=== PATIENT | female | born 1955 | race Caucasian/White ===

== ENCOUNTER → 2017-01-15 | Outpatient (CLI) | payer OTHER | END | disposition home or self-care (01) | LOC: CFH 13:13 | PROVIDERS: ATTEND Obstetrics & Gynecology Maternal & Fetal Medicine | DX: Z12.31 Encounter for screening mammogram for malignant neoplasm of breast (principal) | CPT/HCPCS: G0202 ==

== ENCOUNTER → 2017-01-21 | Outpatient (CLI) | payer OTHER ==
[~2017-01-21] MED LIST: ATOR10TA9 PO; DOCU-144 PO; LEVO112T4 PO
[2017-01-21 11:56] LABS: ASPARTATE AMINO TRANSFERASE 16 U/L (15-37); BLOOD UREA NITROGEN 6 mg/dL (7-18)
== END | disposition home or self-care (01) ==
LOC: STAR 10:52
PROVIDERS: ATTEND Obstetrics & Gynecology Maternal & Fetal Medicine
DX: Z01.818 Encounter for other preprocedural examination (principal); N81.6 Rectocele
CPT/HCPCS: 36415; 80053; 81003; 85025; 93005

== ENCOUNTER → 2017-04-14 | Outpatient (CLI) | payer OTHER ==
[2017-04-14 10:16] LABS: BLOOD UREA NITROGEN 11 mg/dL (7-18)
[2017-04-14 10:29] LABS: ASPARTATE AMINO TRANSFERASE 20 U/L (15-37)
== END | disposition home or self-care (01) ==
LOC: STAR 09:05
PROVIDERS: ATTEND Urology
DX: Z01.818 Encounter for other preprocedural examination (principal); R94.31 Abnormal electrocardiogram [ECG] [EKG]; C64.9 Malignant neoplasm of unspecified kidney, except renal pelvis; D18.03 Hemangioma of intra-abdominal structures; K80.20 Calculus of gallbladder without cholecystitis without obstruction; R79.1 Abnormal coagulation profile
CPT/HCPCS: 36415; 80053; 81003; 85025; 85610; 87086; 93005

== ENCOUNTER 2017-04-23 05:37 | Inpatient (IN) | payer OTHER ==
[2017-04-14 09:36] VITALS: BP 143/81
[~2017-04-23] VITALS: Ht 170.2 cm; Wt 83.7 kg
[2017-04-23] MEDS ORDERED: LACTATED RINGERS 1,000 ML IV SCH (06:42)
[2017-04-23] MEDS ORDERED: LIDOCAINE 1%, 2ML ONE (06:46)
[2017-04-23] MEDS ORDERED: FENTANYL PF 250 MCG/5ML ONE (06:55)
[2017-04-23] MEDS ORDERED: MIDAZOLAM 1 MG/ML, 2ML ONE (06:55)
[2017-04-23] MEDS ORDERED: LIDOCAINE 1%, 2ML SQ PRN (07:00)
[2017-04-23] MEDS ORDERED: FUROSEMIDE 20 MG/2 ML ONE (07:09)
[2017-04-23] MEDS ORDERED: BUPIVACAINE/PF 0.25% ONE (07:10)
[2017-04-23] MEDS ORDERED: THROMBIN 5,000 UNIT VIAL TP ONE (07:10)
[2017-04-23] MEDS ORDERED: EPINEPHRINE 1 MG/ML, 1ML ONE (07:10)
[2017-04-23] MEDS ORDERED: MANNITOL PMX 20% 500 ML ONE (07:10)
[2017-04-23] MEDS ORDERED: GLYCOPYRROLATE 0.2MG/1ML ONE (07:28)
[2017-04-23] MEDS ORDERED: CEFAZOLIN 1,000 MG ONE (07:28)
[2017-04-23] MEDS ORDERED: ONDANSETRON 2MG/ML, 2ML ONE (07:28)
[2017-04-23] MEDS ORDERED: PROPOFOL 10 MG/ML, 20ML ONE (07:28)
[2017-04-23] MEDS ORDERED: SUCCINYLCHOLINE 20 MG/ML, 10ML ONE (07:28)
[2017-04-23] MEDS ORDERED: NEOSTIGMINE 1 MG/ML, 10ML ONE (07:28)
[2017-04-23] MEDS ORDERED: DEXAMETHASONE 4 MG/ML, 1ML ONE (07:28)
[2017-04-23] MEDS ORDERED: ROCURONIUM 10 MG/ML ONE (07:28)
[2017-04-23] MEDS ORDERED: HYDROmorphone 2 MG/ML, 1ML ONE (08:44)
[2017-04-23] MEDS ORDERED: BUPIVACAINE/PF-EPI 0.25% 1:200K INFIL ONE (09:09)
[2017-04-23] MEDS ORDERED: HYDROmorphone 1 MG/ML, 1ML ONE (12:19)
[2017-04-23] MEDS ORDERED: FENTANYL PF 100 MCG/2ML ONE (12:19)
[2017-04-23] MEDS: HYDROmorphone 1 MG/ML, 1ML IV PRN ×4 (12:25→12:46)
[2017-04-23] MEDS ORDERED: METOPROLOL 1 MG/ML, 5ML IV PRN (12:30)
[2017-04-23] MEDS ORDERED: HYDROcodone/APAP 7.5-325MG/15ML UDC PO PRN (12:30)
[2017-04-23] MEDS ORDERED: MIDAZOLAM 1 MG/ML, 2ML IV PRN (12:30)
[2017-04-23] MEDS ORDERED: ONDANSETRON 2MG/ML, 2ML IVPush PRN (12:30)
[2017-04-23] MEDS ORDERED: LABETALOL 5MG/ML, 20ML IV PRN (12:30)
[2017-04-23] MEDS ORDERED: hydrALAzine 20 MG/ML, 1ML IV PRN (12:30)
[2017-04-23] MEDS ORDERED: MEPERIDINE/PF 25MG/0.5ML IVPush PRN (12:30)
[2017-04-23] MEDS ORDERED: ACETAMINOPHEN 325 MG TABLET PO PRN (12:30)
[2017-04-23] MEDS ORDERED: ALBUTEROL SULFATE 2.5 MG/3 ML NPPB PRN (12:30)
[2017-04-23] MEDS ORDERED: PROMETHAZINE 25 MG/ML, 1ML IV PRN (12:30)
[2017-04-23] MEDS ORDERED: OXYcodone 5 MG/5 ML ORAL.SOL UDC PO PRN (12:30)
[2017-04-23] MEDS ORDERED: EPHEDRINE 50 MG/ML, 1ML IVPush PRN (12:30)
[2017-04-23] MEDS ORDERED: FENTANYL PF 100 MCG/2ML IV PRN (12:30)
[2017-04-23] MEDS ORDERED: PROMETHAZINE 25 MG/ML, 1ML ONE (12:57)
[2017-04-23 14:00] VITALS: BP 126/75
[2017-04-23] MEDS: LACTATED RINGERS 1,000 ML IV SCH ×2 (14:00→20:05)
[2017-04-23] MEDS ORDERED: HYDROmorphone 1 MG/ML, 1ML IV PRN (14:00)
[2017-04-23] MEDS ORDERED: ONDANSETRON 2MG/ML, 2ML IV PRN (14:00)
[2017-04-23] MEDS: CEFAZOLIN PMX 1GM/50ML 50 ML IVPB SCH (15:51)
[2017-04-23] MEDS: HYDROcodone/APAP 5/325 TABLET PO PRN ×2 (15:51→20:00)
[2017-04-23 19:26] VITALS: BP 152/83
[2017-04-23 23:10] VITALS: BP 95/50
[2017-04-24] MEDS: HYDROcodone/APAP 5/325 TABLET PO PRN ×5 (00:13→20:06)
[2017-04-24] MEDS: CEFAZOLIN PMX 1GM/50ML 50 ML IVPB SCH (00:16)
[2017-04-24] MEDS: LACTATED RINGERS 1,000 ML IV SCH ×4 (03:18→21:35)
[2017-04-24 03:39] VITALS: BP 91/52
[2017-04-24] MEDS: LEVOTHYROXINE 112 MCG TABLET PO SCH (06:19)
[2017-04-24 06:59] VITALS: BP 98/61
[2017-04-24] MEDS: ENOXAPARIN 40 MG/0.4 ML SQ SCH (07:41)
[2017-04-24 13:39] VITALS: BP 100/69
[2017-04-24 20:56] VITALS: BP 99/61
[2017-04-24] MEDS: BISACODYL 5 MG EC TABLET PO SCH (21:34)
[2017-04-25] MEDS: HYDROcodone/APAP 5/325 TABLET PO PRN ×4 (00:24→18:42)
[2017-04-25 01:09] VITALS: BP 105/57
[2017-04-25] MEDS: LACTATED RINGERS 1,000 ML IV SCH ×3 (01:22→17:29)
[2017-04-25] MEDS: LEVOTHYROXINE 112 MCG TABLET PO SCH (05:15)
[2017-04-25 06:22] LABS: ASPARTATE AMINO TRANSFERASE 75 U/L (15-37); BLOOD UREA NITROGEN 11 mg/dL (7-18)
[2017-04-25 07:00] VITALS: BP 123/74
[2017-04-25] MEDS: ENOXAPARIN 40 MG/0.4 ML SQ SCH (07:44)
[2017-04-25] MEDS ORDERED: BISACODYL 10 MG SUPP PR ONE (12:16)
[2017-04-25 12:45] VITALS: BP 114/65
[2017-04-25 19:06] VITALS: BP 124/73
[2017-04-25] MEDS: BISACODYL 5 MG EC TABLET PO SCH (21:10)
[2017-04-26 00:43] VITALS: BP 117/70
[2017-04-26] MEDS: LACTATED RINGERS 1,000 ML IV SCH ×2 (02:00→07:44)
[2017-04-26] MEDS: LEVOTHYROXINE 112 MCG TABLET PO SCH (05:53)
[2017-04-26 07:09] VITALS: BP 126/73
[2017-04-26] MEDS: ENOXAPARIN 40 MG/0.4 ML SQ SCH (07:56)
[2017-04-26] MEDS ORDERED: BISACODYL 10 MG SUPP PR PRN (13:00)
[2017-04-26 13:56] VITALS: BP 133/80
== END 2017-04-26 14:40 | disposition home or self-care (01) | DRG 658 ==
LOC: OUT 05:37 → 4NOR 13:44 → OUT 13:46 → 4NOR 13:46
PROVIDERS: ADMIT Urology; ATTEND Urology
PROC: 8E0W4CZ Robotic Assisted Procedure of Trunk Region, Percutaneous Endoscopic Approach (ICD-10-PCS; 2017-04-23)
PROC: 0TB04ZZ Excision of Right Kidney, Percutaneous Endoscopic Approach (ICD-10-PCS; principal; 2017-04-23 07:30)
PROC: 0FT44ZZ Resection of Gallbladder, Percutaneous Endoscopic Approach (ICD-10-PCS; 2017-04-23 07:30)
DX: C64.1 Malignant neoplasm of right kidney, except renal pelvis (principal); K59.09 Other constipation; K81.1 Chronic cholecystitis; N81.6 Rectocele; E78.00 Pure hypercholesterolemia, unspecified; E89.0 Postprocedural hypothyroidism; Z79.899 Other long term (current) drug therapy; Z85.850 Personal history of malignant neoplasm of thyroid; Z88.1 Allergy status to other antibiotic agents
CPT/HCPCS: 36415; 71010; 80053; 85025; 86850; 86900; 88304; 88331; C1729; J0171; J0690; J1100; J1170; J1650; J2250; J2405; J2704; J2710; J3010; J3490; C1760; J0330; J1940; J7120